=== PATIENT | male | born 1980 | race Caucasian/White ===

== ENCOUNTER 2020-04-05 10:13 | Emergency (ER) | payer OTHER ==
[2020-04-05 10:19] VITALS: BP 135/91; PULSE 104; RESP 18; TEMP 98.7
[2020-04-05] MEDS ORDERED: HYDROcodone/APAP 7.5-325MG 1 EACH TAB PO ONE (10:31)
--- NOTE | 2020-04-05 10:39 | ED ---
Animal Bite HPI - General Chief Complaint: Animal Bite Stated Complaint: dog bites both arms Time Seen by Provider: 04/05/20 10:26 Source: patient, RN notes reviewed Mode of arrival: ambulatory Limitations: no limitations - History of Present Illness Initial Comments: This a 39-year-old male presents emergency Department chief complaint of bilateral hand dog bites. Patient states that his dogs were fighting last night approximately 11 hours ago when he [place] And states that his own dog bit his hand. Patient states that he woke up with increasing pain and swelling today. Patient hasn't paresthesias he is [id number]. Patient had surgery on his right hand wrist in the past. Patient is up-to-date on his tetanus, dogs are up-to-date vaccinations. Patient offers no other complaints at this time. - Related Data Previous Rx's Medication Instructions Recorded Amoxicillin/Potassium Clav 1 tab PO Q12HR #20 tab 04/05/20 [Augmentin 875-125 Tablet] Ibuprofen [Motrin] 600 mg PO Q8HR PRN #20 tab 04/05/20 Allergies Allergy/AdvReac Type Severity Reaction Status Date / Time No Known Allergies Allergy Verified 04/05/20 10:14 Review of Systems ROS Statement: Those systems with pertinent positive or pertinent negative responses have been documented in the HPI. ROS Other: All systems not noted in ROS Statement are negative. Past Medical History Past Medical History: No Reported History History of Any Multi-Drug Resistant Organisms: None Reported Additional Past Surgical History / Comment(s): RT wrist surgery Past Psychological History: No Psychological Hx Reported Smoking Status: Current every day smoker Past Alcohol Use History: Occasional Past Drug Use History: None Reported General Exam Limitations: no limitations General appearance: alert, in no apparent distress Head exam: Present: atraumatic, normocephalic, normal inspection Respiratory exam: Present: normal lung sounds bilaterally. Absent: respiratory distress, wheezes, rales, rhonchi, stridor Cardiovascular Exam: Present: normal rhythm, tachycardia, normal heart sounds. Absent: systolic murmur, diastolic murmur, rubs, gallop, clicks Extremities exam: Present: other (Right hand there are multiple puncture wounds, 2 cm superficial laceration to hand and wrist region, left hand there are puncture wounds on the dorsal aspect) Neurological exam: Present: alert, oriented X3, CN II-XII intact, reflexes normal. Absent: motor sensory deficit Skin exam: Present: warm, dry, normal color. Absent: intact, rash Course Vital Signs 04/05/20 10:14 Temperature 98.7 F Pulse Rate 104 H Respiratory 18 Rate Blood Pressure 135/91 O2 Sat by Pulse 97 Oximetry Medical Decision Making - Medical Decision Making 30-year-old male presented for abdominal bite. X-rays are negative. Patient starting antibiotics for concerns of infection. There is no closure needed as they're puncture wounds, old wound at this point. Patient's was given strict return parameters advised a recheck within 24 hours and return for any worsening symptoms. Disposition Clinical Impression: Dog bite of right hand, Dog bite of left hand Disposition: HOME SELF-CARE Condition: Stable Instructions (If sedation given, give patient instructions): Animal Bite (ED) Additional Instructions: Please return to the Emergency Department if symptoms worsen or any other concerns. Prescriptions: Amoxicillin/Potassium Clav [Augmentin 875-125 Tablet] 1 tab PO Q12HR #20 tab Ibuprofen [Motrin] 600 mg PO Q8HR PRN #20 tab PRN Reason: Pain Is patient prescribed a controlled substance at d/c from ED?: No Referrals: None,Stated [Primary Care Provider] - 1-2 days Time of Disposition: 11:03
--- NOTE | 2020-04-05 10:50 | XR ---
EXAMINATION TYPE: XR hand complete bilateral , 6 VIEWS DATE OF EXAM ORDERED: 04/05/2020 HISTORY: dog bite. COMPARISON: None. FINDINGS: The study is underexposed. There is sideplate and screw fixation of the distal right radius. No fracture, dislocation or radiopa que foreign body is seen. IMPRESSION: 1. NO ACUTE ABNORMALITY. 2. POSTSURGICAL CHANGE.
[2020-04-05] MEDS ORDERED: ACET/COD 300 MG/30 MG STARTER PACK 6 TAB BTL PO STA (11:02)
[2020-04-05] MEDS ORDERED: AMOXIC-POT CLAV 875MG STARTER PACK 2 TAB BTL PO STA (11:03)
== END 2020-04-05 11:22 | disposition home or self-care (01) ==
LOC: EC 10:13
DX: S61.451A Open bite of right hand, initial encounter (principal); S61.452A Open bite of left hand, initial encounter; S61.411A Laceration without foreign body of right hand, initial encounter; F17.200 Nicotine dependence, unspecified, uncomplicated; W54.0XXA Bitten by dog, initial encounter
CPT/HCPCS: 99283